=== PATIENT | female | born 1940 | race Caucasian/White ===

== ENCOUNTER 2016-09-07 19:20 | Emergency (ER) | payer MEDICARE, OTHER ==
[~2016-09-07 19:20] MED LIST: ACET500CAP PO; ASAB PO; CELEXA20 PO; COR20 PO; COZAAR100 MG PO; DOX25 PO; GLUCXL2.5 PO; GLUCXL5 PO; LIPITOR20 PO; LIPITOR40 PO; LISINOPRIL40 MG PO; MTX2.5 PO; PEP20 PO; TAMBO50 PO; VITAMIN D31000 UNIT PO; Z5 PO; ZYRTEC ALLGY10 MG PO
== END 2016-09-07 21:23 | disposition home or self-care (01) ==
LOC: ER 19:20
PROC: 2W3SXYZ Immobilization of Right Foot using Other Device (ICD-10-PCS; principal; 2016-09-07)
DX: S51.011A Laceration without foreign body of right elbow, initial encounter (principal); S92.421A Displaced fracture of distal phalanx of right great toe, initial encounter for closed fracture; I10 Essential (primary) hypertension; E11.9 Type 2 diabetes mellitus without complications; Z88.2 Allergy status to sulfonamides; Z88.1 Allergy status to other antibiotic agents; Z88.0 Allergy status to penicillin; Z79.899 Other long term (current) drug therapy; W19.XXXA Unspecified fall, initial encounter
CPT/HCPCS: 73080-RT; 73630-RT; 90471; 90714; 99284